=== PATIENT | female | born 1985 | race Caucasian/White ===

== ENCOUNTER 2022-04-24 18:55 | Emergency (ER) | payer MEDICAID ==
[~2022-04-24] VITALS: Ht 165.1 cm; Wt 61.2 kg
--- NOTE | 2022-04-24 19:50 | NUR ---
Arrival 37 y/o white female ambulatory to ED c/o burning with urination and frequency.
[2022-04-24 20:02] VITALS: BP 131/101
--- NOTE | 2022-04-24 20:10 | ER.PDOC ---
General Chief Complaint: Requesting Medical Care Stated Complaint: FEMALE Time seen by MD: 20:10 Source: patient Exam Limitations: no limitations History of Present Illness Initial Comments 37 yo F has a history of recurrent UTIs, particularly with intercourse. Having typical symptoms for a day or two. Traveling/camping. Timing/Duration: yesterday Severity/Quality: moderate Sexual [place] History: single partner Contraceptive: none (partner has vasectomy) Associated Symptoms: dysuria, urinary frequency Prior symptoms/Treatment: Similar symptoms previous Past Medical History Medical History: other (frequent UTIs) Surgical History: cholecystectomy Social History Alcohol Use: none Drug Use: none Reviewed Nursing Reviewed: Vital Signs, Abn. Noted, Nursing Assessment Review of Systems Constitutional: no symptoms reported EENTM: no symptoms reported Respiratory: no symptoms reported Cardiovascular: no symptoms reported Gastrointestinal: no symptoms reported Genitourinary: burning, dysuria, frequency, urgency Musculoskeletal: no symptoms reported Skin: no symptoms reported Psychiatric/Neurological: no symptoms reported Endocrine: no symptoms reported Hematologic/Lymphatic: no symptoms reported All Other Systems: Reviewed and Negative Physical Exam General Appearance: No Apparent Distress EENT: eyes nml inspection Neck: non-tender (grossly wnl) Cardiovascular/Respiratory: Regular Rate, Rhythm Abdomen: Normal Bowel Sounds Back: nml inspection Extremities: Normal Range of Motion Neurologic/Psychiatric: No Motor/Sensory Deficits, Alert, Normal Mood/Affect Skin: Normal Color Results/Orders Results/Orders Orders - HERIBERTO CURRY MD Urinalysis (04/24/22 20:01) Hcg Urine (04/24/22 20:01) Urine Culture (04/24/22 20:00) Sulfamethoxazole/Trimethoprim (Bactrim D (04/24/22 20:32) Sulfamethoxazole/Trimethoprim (Bactrim D (04/24/22 20:39) Vital Signs Date Time Temp Pulse Resp B/P (MAP) Pulse Ox O2 Delivery O2 Flow Rate FiO2 04/24/22 20:02 98.1 67 20 04/24/22 20:02 98.1 67 20 98 04/24/22 20:02 98.1 67 20 131/101 (111) 98 Room Air* 0 21 Administered Medications Medications (Trade) Dose Ordered Sig/Hitesh Route PRN Reason Start Time Stop Time Status Last Admin Dose Admin Trimethoprim/ Sulfamethoxazole (Bactrim Ds) 1 each STAT STAT PO 04/24/22 20:32 04/24/22 20:38 DC 04/24/22 20:40 1 EACH Laboratory Tests Test 04/24/22 20:00 Urine Collection Type UNKNOWN Urine Color YELLOW Urine Appearance CLOUDY Urine Bilirubin NEGATIVE (NEGATIVE) Urine Ketones NEGATIVE (NEGATIVE) Urine Specific [place] 1.025 (1.005-1.030) Urine pH 5.5 (4.5-8.0) Urine Protein NEGATIVE (NEGATIVE) Urine Urobilinogen 0.2 E.U./dL (0.2) Urine Nitrate NEGATIVE (NEGATIVE) Urine Leukocyte Esterase 2+ (NEGATIVE) H Urine Glucose (Auto)(UA) NEGATIVE (NEGATIVE) Urine Blood TRACE-INTACT (NEGATIVE) H Urine RBC 0-2 RBC/HPF (NONE SEEN) Urine WBC TooNumerousToCount WBC/HPF (0-2) Urine Squamous Epithelial Cells MODERATE (<=FEW) Urine Bacteria MANY (NONE SEEN) H Urine HCG, Qualitative NEGATIVE (NEGATIVE) Progress Progress UTI is quite apparent. We will treat with bactrim. ER DEPART Departure Time of Disposition: 20:35 Disposition: HOME / SELF CARE / HOMELESS Impression: Primary Impression: UTI (urinary tract infection) Condition: Stable Patient Instructions: Urinary Tract Infection, [id number] Referrals: PCP,UNKNOWN (PCP) PRIMARY CARE PROVIDER Duration or Time Spent with Pa: 10 HERIBERTO CURRY MD Apr 24, 2022 20:10
[2022-04-24 20:16] LABS: BILIRUBIN,URINE NEGATIVE (NEGATIVE); UROBILINOGEN,URINE 0.2 E.U./dL (0.2)
[2022-04-24] MEDS ORDERED: BACTRIM DS PO STA (20:32)
[2022-04-24] MEDS ORDERED: BACTRIM DS ONE (20:39)
== END 2022-04-24 20:38 | disposition home or self-care (01) ==
LOC: ER 18:55
DX: N39.0 Urinary tract infection, site not specified (principal); Z87.440 Personal history of urinary (tract) infections; Z90.49 Acquired absence of other specified parts of digestive tract
CPT/HCPCS: 81001; 81025; 87077; 87086; 87186; 99283